=== PATIENT | female | born 2000 | race Caucasian/White ===

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

== ENCOUNTER → 2022-02-05 | Outpatient (CLI) | payer OTHER, SELFPAY ==
[2022-02-05 15:24] LABS: CRP < 2.90 mg/L (0.0-3.0)
[2022-02-05 17:03] LABS: Absolute Lymphocyte Count 3.27 X10^3/uL (0.83-4.51); Absolute Neutrophil Count 5.1 X10^3/uL (2.0-7.7); Basophil# 0.05 X10^3/uL; Basophil% 0.5 % (0-1); Eosinophil# 0.37 X10^3/uL; Hematocrit 40.1 % (37-47); Hemoglobin 13.2 g/dL (12.0-15.0); Lymphocyte # 3.27 X10^3/ul (0.83-4.51); Lymphocyte % 35.3 % (19-41); Mean Corp Hgb Conc 32.9 g/dL (32-36); Mean Corpuscular Hgb 30.1 pg (27.0-32.0); Mean Corpuscular Volume 91.6 fL (81-99); Mean Platelet Vol. 9.9 fl (6.2-12.0); Monocyte# 0.46 X10^3/uL; NRBC Flagged by Analyzer 0 % (0-5); Neutrophil # 5.08 X10^3/uL (2.7-7.7); Neutrophil % 54.8 % (47-70); Platelet Count 279 K/mm3 (150-450); RBC Distribution Width CV 12.1 % (11.6-14.6); Red Blood Count 4.38 M/mm3 (4.2-5.4); White Blood Count 9.3 K/mm3 (4.4-11.0)
[2022-02-05 17:04] LABS: Erythrocyte Sedimentation Rate 1 mm/hr (0-30)
[2022-02-07 13:07] LABS: Anti-Centromere B Ab <0.2 AI (0.0-0.9); Anti-Chromatin <0.2 AI (0.0-0.9); Anti-Jo <0.2 AI (0.0-0.9); Anti-Scleroderma-70 AB <0.2 AI (0.0-0.9); RNP Ab <0.2 AI (0.0-0.9); SJOGREN'S Anti-SS-A test < 0.2 AI (0.0-0.9); SJOGREN'S Anti-SS-B test < 0.2 AI (0.0-0.9); Smith Ab <0.2 AI (0.0-0.9)
[2022-02-07 14:52] LABS: Anti-dsDNA Ab 1 IU/mL (0-9)
[2022-02-07 15:08] LABS: Endomysial Antibody IgA Negative (Negative)
[2022-02-08 07:10] LABS: Immunoglobulin A 196 mg/dL (87-352); t-Transglutaminase IgA <2 U/mL (0-3)
[2022-02-12 13:07] LABS: Albumin 4.4 g/dL (2.9-4.4); Alpha-1-Globulins 0.2 g/dL (0.0-0.4); Alpha-2-Globulins 0.7 g/dL (0.4-1.0); Angiotensin Convert Enzyme 35 U/L (14-82); Cytoplasmic Ab (C-ANCA) <1:20 titer (Neg:<1:20); Immunoglobulin A 189 mg/dL (87-352); Immunoglobulin G 1002 mg/dL (586-1602); Immunoglobulin M 115 mg/dL (26-217); PROEL- TOTAL PROTEIN 7.4 g/dL (6.0-8.5)
[2022-02-13 08:32] LABS: Anti-Smooth Muscle ABS 4 Units (0-19)
[2022-02-13 08:33] LABS: Immunoglobulin E 33 IU/mL (6-495); Perinuclear Ab (P-ANCA) <1:20 titer (Neg:<1:20)
== END | disposition home or self-care (01) ==
LOC: LAB 14:33
PROVIDERS: PCP Family Medicine; Visit Provider Internal Medicine Gastroenterology
DX: R10.9 Unspecified abdominal pain (principal)
CPT/HCPCS: 82164; 82784; 82785; 83516; 83630; 84165; 85025; 85652; 86140; 86225; 86235; 86255; 86256; 86334